=== PATIENT | male | born 1965 | race Two or more races ===

== ENCOUNTER → 2024-03-30 | Outpatient (CLI) | payer BC, SELFPAY ==
--- NOTE | 2024-03-30 13:09 | EKG_ITS ---
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
== END | disposition home or self-care (01) ==
LOC: SEKG 12:50
PROVIDERS: PCP Family Medicine; Referring Provider Family Medicine; Visit Provider Family Medicine
DX: R07.9 Chest pain, unspecified (principal); R00.2 Palpitations
CPT/HCPCS: 93005